=== PATIENT | male | born 1950 | race Hispanic/Latino ===

== ENCOUNTER 2018-06-28 06:12 | Day surgery (SDC) | payer BC ==
[2013-08-22 13:43] VITALS: BMI 29.7
[2018-06-28 07:02] VITALS: TEMP 98.3
[2018-06-28] MEDS ORDERED: Propofol 10 mg/ml Inj (20 ML) ONE (07:30)
[2018-06-28] MEDS ORDERED: ePHEDrine 50 mg/ml Inj ONE (08:25)
[2018-06-28] MEDS ORDERED: Sodium Chloride 0.9% 1,000 ML IV SCH (09:00)
[2018-06-28 10:00] VITALS: PULSE 57; RESP 16; O2SAT 96
[2018-06-28 16:53] VITALS: BP 126/65
== END 2018-06-28 10:25 | disposition home or self-care (01) ==
LOC: ENDO 06:12
PROVIDERS: ATTEND Internal Medicine Gastroenterology
DX: Z12.11 Encounter for screening for malignant neoplasm of colon (principal); K57.30 Diverticulosis of large intestine without perforation or abscess without bleeding; K64.8 Other hemorrhoids; Q43.8 Other specified congenital malformations of intestine; Z86.010 Personal history of colon polyps; C61 Malignant neoplasm of prostate; E11.9 Type 2 diabetes mellitus without complications; K20.9 Esophagitis, unspecified; K44.9 Diaphragmatic hernia without obstruction or gangrene; K29.70 Gastritis, unspecified, without bleeding; K29.80 Duodenitis without bleeding; I10 Essential (primary) hypertension; H40.9 Unspecified glaucoma; E78.5 Hyperlipidemia, unspecified; Z79.82 Long term (current) use of aspirin
CPT/HCPCS: 45378; 82948; J2001; J2704; J7030

== ENCOUNTER 2018-08-04 06:06 | Day surgery (SDC) | payer BC ==
[2018-08-02 15:25] VITALS: BMI 29.2
[2018-08-04 07:02] VITALS: O2SAT 98
[2018-08-04] MEDS ORDERED: Lidocaine 2% Inj (20ml) ONE (07:19)
[2018-08-04] MEDS ORDERED: Iohexol 350mgl/ml 50 ML ONE (07:20)
[2018-08-04] MEDS ORDERED: Iodixanol 320 MG/ML 100 ML BOTTLE IV ONE (07:20)
[2018-08-04] MEDS ORDERED: Iodixanol 320 MG/ML 200 ML BOTTLE IV ONE (07:20)
[2018-08-04] MEDS ORDERED: Midazolam 2 MG/2 ML VIAL ONE ×2 (07:34→07:57)
[2018-08-04] MEDS ORDERED: Sodium Chloride 0.9% 1,000 ML IV SCH (08:15)
[2018-08-04] MEDS: Insulin Lispro (humaLOG) MEDIUM Coverage SC SCH ×3 (11:30→17:25)
[2018-08-04 15:02] VITALS: BP 132/64
--- NOTE | 2018-08-04 15:41 | CARDCATH ---
PROCEDURE DATE: 08/04/2018 CARDIAC CATHETERIZATION INTERVENTION REPORT PROCEDURES: 1. Selective left and right angiography. 2. Left ventriculography. 3. PCI of mid LAD with a drug-eluting stent. 4. Right femoral arteriography. 5. Angio-Seal deployment. HISTORY: This is a 67-year-old male with known coronary artery disease, status post previous PCI as well as a history of diabetes, hypertension, hyperlipidemia. He underwent a recent stress test for evaluation of exertional dyspnea. This showed evidence of anteroseptal and apical ischemia and cardiac catheterization was advised. INDICATIONS: Known coronary artery disease, abnormal stress test. FINDINGS: HEMODYNAMICS: The aortic pressure was 136/70, left ventricular pressure 136/15. CORONARY ANATOMY: 1. The left mainstem was normal. 2. The left anterior descending artery was moderately calcified in its proximal segment. In the early mid portion of the vessel, at the proximal edge of the previously placed stent, there was 99% stenosis. Mild irregularities were noted in the distal vessel. The proximal LAD had a diffuse 40% narrowing as well. The diagonal branches had mild disease. 3. The left circumflex artery was dominant. This had mild diffuse disease in its proximal mid segment as well. 4. The right coronary artery was non-dominant in that it had diffuse 60% proximal stenosis. The acute marginal had mild diffuse disease as well. LEFT VENTRICULOGRAPHY: A hand injection was performed in the left ventricle revealing a super normal wall motion and ejection fraction of 80%. There was no aortic valve gradient on catheter pullback. Mitral regurgitation was not assessed. CORONARY INTERVENTION: A 3.5 EBU guide catheter was utilized and 4000 units of intravenous heparin was administered with an ACT of 222 seconds during the procedure. The lesion in the LAD was successfully crossed with the use of a [place] wire. Following this, initial inflations were performed with a 3.0 x 12 mm balloon. This was inflated to 14 atmospheres for 30 seconds. Following this, the balloon was removed and a 3.0 x 12 mm NC Resolute drug-eluting stent was advanced and positioned under fluoroscopic guidance. This was deployed to 14 atmospheres for 45 seconds. Following this, there appeared to be some residual under-deployment of the stent and the stent balloon was then removed. A 3.25 x 12 mm NC balloon was then advanced into the stented segment and inflated to 14 atmospheres. This was maintained for 1 minute. The balloon was then deflated and advanced into the overlap of the two stents and this was inflated to 16 atmospheres for 1 minute as well. There was 0% residual stenosis following the intervention and KI grade 3 flow present before and after the procedure. RIGHT FEMORAL ARTERIOGRAPHY: Right femoral arteriogram revealed no evidence of significant disease and appropriate level of arterial puncture. The puncture site was then closed with deployment of an Angio-Seal device. CONCLUSION: 1. Severe early mid left anterior descending artery disease. 2. Moderate proximal left anterior descending artery and non-dominant right coronary artery disease. 3. Normal left ventricular function. 4. Successful percutaneous coronary intervention of left anterior descending artery with a drug-eluting stent as described above. RECOMMENDATIONS: Given the above findings, aspirin and Plavix therapy will be continued for at least 1 year. Aggressive risk factor control is advised. Olman Harmon MD cc: Summer Luque MD
[2018-08-04 18:18] VITALS: PULSE 85; RESP 20; TEMP 98.3
--- NOTE | 2018-08-04 18:49 | CARD ---
APPROVED REPORT Date of service: 08/04/2018 EKG Measurement Heart [id number] <Conclusion> Sinus bradycardia with sinus arrhythmia with 1st degree AV block Left ventricular hypertrophy with repolarization abnormality Abnormal ECG
== END 2018-08-04 18:25 | disposition home or self-care (01) ==
LOC: CATH 06:06 → 2RSO 09:01 → CATH 18:25
PROVIDERS: ATTEND Internal Medicine Cardiovascular Disease
DX: I25.10 Atherosclerotic heart disease of native coronary artery without angina pectoris (principal); I10 Essential (primary) hypertension; E11.9 Type 2 diabetes mellitus without complications; E78.5 Hyperlipidemia, unspecified; Z98.61 Coronary angioplasty status; R94.39 Abnormal result of other cardiovascular function study; R06.00 Dyspnea, unspecified
CPT/HCPCS: 36415; 82948; 85175; 86850; 86900; 93005; 93458; 99152; 99153; C1725 ×2; C1760; C1769 ×2; C1874; C1887; C2629; C9600; J1644 ×2; J2250; J3010; J7030; Q9966; Q9967

== ENCOUNTER 2018-10-21 09:30 | Outpatient (CLI) | payer MEDICARE | END 2018-10-21 09:31 | disposition home or self-care (01) | LOC: LAB 09:30 ==